=== PATIENT | male | born 1945 | race Caucasian/White ===

== ENCOUNTER → 2017-04-30 | Outpatient (CLI) | payer MEDICARE, OTHER | END | disposition home or self-care (01) | LOC: CT 11:38 | DX: N20.2 Calculus of kidney with calculus of ureter (principal); K57.30 Diverticulosis of large intestine without perforation or abscess without bleeding; N40.0 Benign prostatic hyperplasia without lower urinary tract symptoms | CPT/HCPCS: 74176 ==

== ENCOUNTER → 2017-05-28 | Day surgery (SDC) | payer MEDICARE, OTHER ==
[~2017-05-28] MED LIST: DEXAMETHASONE SOD PHOS 20 MG/5 ML VIAL.; LIDOCAINE 1% PF 2 ML VIAL. ID; LIDOCAINE 2% JELLY 6ML IN APPLICATOR.; LIDOCAINE 2% PF Vial for OR 5 ML VIAL.; MORPHINE SULFATE 4 MG/ML DISP.SYRIN. IV; ONDANSETRON PF 4 MG/2 ML VIAL.; ONDANSETRON PF 4 MG/2 ML VIAL. IV; PROPOFOL 0 ML IV; SEVOFLURANE 31 TO 60 MINUTES. IH; ceFAZolin 2GM PREMIX 2 GM/50 ML BAG IV; fentaNYL PF VIAL 100 MCG/2 ML VIAL; fentaNYL PF VIAL 100 MCG/2 ML VIAL IV
[2017-05-28] MEDS: IV RINGERS,LACTATED 1000ML 1,000 ML IV (11:45)
[2017-05-28] MEDS: PROCHLORPERAZINE 10 MG/2 ML VIAL. IV (15:15)
[2017-05-28] MEDS: IOHEXOL 300 MG/ML 100ML VIAL. (15:27)
[2017-05-28] MEDS: HYDROcodone/APAP 5/325MG 1 TAB TABLET PO (16:31)
== END | disposition home or self-care (01) ==
LOC: SURG 11:09
DX: N20.1 Calculus of ureter (principal); N40.0 Benign prostatic hyperplasia without lower urinary tract symptoms; I25.10 Atherosclerotic heart disease of native coronary artery without angina pectoris; Z86.010 Personal history of colon polyps; I10 Essential (primary) hypertension; Z95.5 Presence of coronary angioplasty implant and graft; I50.9 Heart failure, unspecified; Z85.47 Personal history of malignant neoplasm of testis
CPT/HCPCS: 52332; 74420; C1769; J0690; J0780; J1100; J2405; J2704; J3010; Q9967

== ENCOUNTER → 2019-01-13 | Outpatient (CLI) | payer MEDICARE, OTHER ==
[2017-05-28 16:11] VITALS: BP 115/58
[~2019-01-13] MED LIST changes: +AMLO5TAB4 PO; +ASCO-78 PO; +ASPI-630 PO; +ATOR40TA59 PO; -DEXAMETHASONE SOD PHOS 20 MG/5 ML VIAL.; +FOLI1TAB16 PO; +HYDR-2761 PO; +HYDR-3164 PO; -LIDOCAINE 1% PF 2 ML VIAL. ID; -LIDOCAINE 2% JELLY 6ML IN APPLICATOR.; -LIDOCAINE 2% PF Vial for OR 5 ML VIAL.; +LISI-130 PO; +METO50TA6 PO; -MORPHINE SULFATE 4 MG/ML DISP.SYRIN. IV; +MULT1TAB52 PO; +OMEG-165 PO; +ONDA4TAB7 PO; -ONDANSETRON PF 4 MG/2 ML VIAL.; -ONDANSETRON PF 4 MG/2 ML VIAL. IV; -PROPOFOL 0 ML IV; -SEVOFLURANE 31 TO 60 MINUTES. IH; +SILD20TA2 PO; +TAMS0.4C97 PO; -ceFAZolin 2GM PREMIX 2 GM/50 ML BAG IV; -fentaNYL PF VIAL 100 MCG/2 ML VIAL; -fentaNYL PF VIAL 100 MCG/2 ML VIAL IV
[2019-01-13 12:29] LABS: ALBUMIN 3.5 g/dL (3.4-5.0); CALCIUM 8.6 mg/dL (8.5-10.1); CREATININE 0.9 mg/dL (0.7-1.3); GFR 82.9; TOTAL BILIRUBIN 0.5 mg/dL (0.2-1.0)
[2019-01-13 12:32] LABS: BASO # 0.1 x10^3/uL (0.0-0.2); BASO % 1 % (0-3); EOS # 0.2 x10^3/uL (0.0-0.7); EOS % 3 % (0-3); HEMOGLOBIN 13.8 g/dL (13.0-17.5); LYMPH # 1.2 x10^3/uL (1.0-4.8); LYMPH % 23 % (24-48); MEAN CORPUSCULAR HEMOGLOBIN 31 pg (25-35); MEAN CORPUSCULAR HGB CONC 33 g/dL (31-37); MEAN CORPUSCULAR VOLUME 94 fL (79-100); MONO # 0.4 x10^3/uL (0.0-1.1); MONO % 7 % (0-9); NEUT # 3.4 x10^3/uL (1.8-7.7); NEUT % 65 % (31-73); PLATELET COUNT 177 x10^3/uL (140-400); RED BLOOD COUNT 4.49 x10^6/uL (4.30-5.70); RED CELL DISTRIBUTION WIDTH 14.8 % (11.5-14.5); WHITE BLOOD COUNT 5.2 x10^3/uL (4.0-11.0)
== END | disposition home or self-care (01) ==
LOC: SURGPAT 11:15
PROVIDERS: ATTEND Surgery
DX: Z01.812 Encounter for preprocedural laboratory examination (principal); K82.8 Other specified diseases of gallbladder
CPT/HCPCS: 36415; 80048; 82040; 82247; 85025

== ENCOUNTER 2019-01-19 07:51 | Day surgery (SDC) | payer MEDICARE, OTHER ==
[~2019-01-19] VITALS: Ht 165.1 cm; Wt 88.0 kg
[~2019-01-19 07:51] MED LIST changes: +BUPIVACAINE-EPI 0.5%-1:200000 MPF 30 ML VIAL. INJ ONE; +GLUCAGON,HUMAN RECOMBINANT 1 MG/ML VIAL. ONE; -HYDR-3164 PO; +HYDROmorphone 2 MG/ML VIAL IV PRN; +IOHEXOL 300 MG/ML 50 ML VIAL. ONE; +IV RINGERS,LACTATED 1000ML 1,000 ML IV SCH; +LIDOCAINE 1% PF 2 ML VIAL. ID PRN; +MORPHINE SULFATE 2 MG/ML VIAL. IV PRN; +ONDANSETRON PF 4 MG/2 ML VIAL. IV PRN; +PROCHLORPERAZINE 10 MG/2 ML VIAL. IV PRN; +SURGICEL HEMOSTAT 4X8 EACH. ONE; +fentaNYL PF VIAL 100 MCG/2 ML VIAL IV PRN
[2019-01-19] MEDS ORDERED: NEOSTIGMINE METHYLSULFATE 5 MG/5 ML SYRINGE. ONE (08:16)
[2019-01-19] MEDS ORDERED: MIDAZOLAM HCL/PF 2 MG/2 ML VIAL. ONE (08:16)
[2019-01-19] MEDS ORDERED: GLYCOPYRROLATE 1 MG/5 ML VIAL. ONE (08:16)
[2019-01-19] MEDS ORDERED: ROCURONIUM 50 MG/5 ML VIAL. ONE (08:16)
[2019-01-19] MEDS ORDERED: SEVOFLURANE 61 TO 120 MINUTES. IH ONE (08:16)
[2019-01-19] MEDS ORDERED: fentaNYL PF VIAL 100 MCG/2 ML VIAL ONE ×2 (08:16→10:45)
[2019-01-19] MEDS ORDERED: ONDANSETRON PF 4 MG/2 ML VIAL. ONE (08:17)
[2019-01-19] MEDS ORDERED: PROPOFOL 20 ML IV ONE (08:17)
[2019-01-19] MEDS ORDERED: DEXAMETHASONE SOD PHOS 4 MG/ML VIAL ONE (08:17)
[2019-01-19] MEDS ORDERED: LIDOCAINE 2% PF 5 ML VIAL. ONE (08:17)
[2019-01-19] MEDS ORDERED: ePHEDrine PF IN SALINE 50 MG/10 ML SYRINGE. IV ONE (09:38)
[2019-01-19] MEDS ORDERED: PHENYLEPHRINE in 0.9% NACL PF 1 MG/10 ML SYRINGE. IV ONE (09:52)
--- NOTE | 2019-01-19 10:50 | PDOC ---
BRIEF OPERATIVE NOTE Date: Jan 19, 2019 Pre-Op Diagnosis biliary dyskinesia Post-Op Diagnosis same with acute cholecystitis Procedure Performed l/s mike with grams Surgeon Beto Anesthesia Type: General Blood Loss 10cc IV Fluid 800cc Specimens Obtained GB Findings edematous GB, normal grams Complications none Operative Note Wk # [id number] REJI STEELE MD Jan 19, 2019 10:50
--- NOTE | 2019-01-19 10:51 | DISCH ---
DISCHARGE INSTRUCTIONS Condition on Discharge Condition on Discharge: Stable Activity After Discharge Activity Instructions for Disc: Activity as tolerated, Avoid exertion Lifting Instructions after Dis: No heavy lifting Driving Instructions after Dis: Do not drive (2-3 days) Diet after Discharge Diet after Discharge: Regular Wound Incision Care Wound/Incision Care: Ice to area for comfort Other wound/incision instructi: july shower Saturday Follow-Up Follow up with: Beto 01/22 in office for drain removal REJI STEELE MD Jan 19, 2019 10:51
--- NOTE | 2019-01-19 11:06 | OP ---
DATE OF SURGERY: 01/19/2019 PREOPERATIVE DIAGNOSIS: Biliary dyskinesia. POSTOPERATIVE DIAGNOSIS: Biliary dyskinesia with acute cholecystitis. PROCEDURE: Laparoscopic cholecystectomy with cholangiogram. SURGEON: Reji Steele MD ANESTHESIA: General endotracheal. ESTIMATED BLOOD LOSS: 10. INTRAVENOUS FLUIDS: 800. OPERATIVE FINDINGS: The gallbladder was edematous and distended. Visual inspection of the remainder of the abdomen failed to reveal obvious abnormalities. DESCRIPTION OF PROCEDURE: The patient was brought to the operating suite, given a general endotracheal anesthetic, and the abdomen prepped and draped in usual sterile fashion. A supraumbilical incision was infiltrated with local, incised and a 5 mm Visiport used to safely gain access into the abdominal cavity, taking care to avoid injury to abdominal contents. Pneumoperitoneum established. Camera inserted. Inspection carried out with results as noted above. With the table in reverse Trendelenburg rolled to the left, the epigastric, midclavicular and lateral ports were placed under direct vision. The gallbladder was aspirated of approximately 30 mL of concentrated bile to allow grasping of the fundus, which was then retracted superolaterally. The cystic duct and cystic artery were exposed. The duct was clipped on the gallbladder side. Cholangiograms were made. These were normal. In light of this, the catheter was removed, the cystic duct was clipped and divided, taking care to avoid injury or compromise of the common duct. An anterior and posterior branch of the cystic artery were clipped and divided, and gallbladder freed from the bed with cautery dissection and placed in an EndoCatch bag. Hemostasis obtained in the fossa with cautery and a small piece of Surgicel. A 19-Jordanian round Niko drain was brought through the epigastric port out the lateral port, sewn to the skin with a silk stitch and left in the subhepatic space for postoperative drainage. Table returned to level. Gallbladder delivered through the epigastric incision. Epigastric incision closed with interrupted 0 Vicryl suture. Intra-abdominal pressure decreased to 6 cm of water. No bleeding from the epigastric closure or the midclavicular or lateral drain sites. Abdomen decompressed, camera slowly removed, no bleeding seen. Skin incisions closed with subcuticular 4-0 Monocryl. Steri-Strips and sterile dressings applied. The patient was awakened from his anesthetic and taken to the recovery room in satisfactory condition. REJI STEELE MD DR: Vanessa JOB#: [id number] / [id number]
[2019-01-19] MEDS ORDERED: HYDROcodone/APAP 5/325MG 1 TAB TABLET PO ONE (11:30)
--- NOTE | 2019-01-19 11:34 | RAD ---
C-arm fluoroscopy with fluoroscopic spot views Clinical indications: Intraoperative cholangiogram. Laparoscopic cholecystectomy. Total fluoroscopic time: 12 seconds. Total fluoroscopic spot images: 3 IMPRESSION: Fluoroscopic spot images demonstrate opacification of the extra hepatic biliary tree which is nondilated. There is free flow of contrast material from the common bile duct into the duodenum. No stricture or stone is evident. Electronically signed by: Antonio Blunt MD (01/19/2019 11:30 AM) [id number]
[2019-01-19] MEDS ORDERED: HYDR-3164 PO ×2 (11:48→11:50)
[2019-01-19 12:19] VITALS: BP 114/62
--- NOTE | 2019-01-20 18:06 | PATHOLOGY ---
[facility] Accession Number: [id number] . 01 Material submitted: . gallbladder - GALLBLADDER . 01 Clinical history: . Cholecystitis . 02 Diagnosis: Gallbladder, laparoscopic cholecystectomy: - Bile sludge. 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 02 Comment: There is bile sludge within the gallbladder lumen. There are no discreet calculi. There is no evidence of malignancy. 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 02 Electronically signed: . Clayton Milton MD, Pathologist NPI- [id number] . 01 Gross description: . The specimen is received in formalin, labeled "Vinicius, Omar, gallbladder", is intact gallbladder measuring 5.8 cm in length and 1.9 cm in maximum diameter with a diffusely hemorrhagic serosa. Approximately 1.2 cm from the fundus there is a blue suture tied to the gallbladder. The cystic duct is patent. The gallbladder lumen contains dark brown-yellow sludge and no discrete calculi. The mucosa is dark brown and granular and with no recognizable cholesterolosis. The wall is 0.2 cm in average thickness. Representatively submitted in A1. ([facility]; 01/19/2019) [facility] 01/19/2019 1908 Local . 02 Pathologist provided ICD-10: K81.1 . 02 CPT . 658268 Specimen Comment: A courtesy copy of this report has been sent to [phone], [phone] Specimen Comment: [id number] Specimen Comment: Report sent to and Performed at: [address], [place] [id number] MD Dominik Sutton MD Phone: [phone] Performed at: [address] [id number] MD Clayton Milton MD Phone: [phone]
== END 2019-01-19 13:01 | disposition home or self-care (01) ==
LOC: SURG 07:51
PROVIDERS: ATTEND Surgery
DX: K82.8 Other specified diseases of gallbladder (principal); K80.12 Calculus of gallbladder with acute and chronic cholecystitis without obstruction; I10 Essential (primary) hypertension; I11.9 Hypertensive heart disease without heart failure; I25.2 Old myocardial infarction; I25.10 Atherosclerotic heart disease of native coronary artery without angina pectoris; K57.30 Diverticulosis of large intestine without perforation or abscess without bleeding; Z98.890 Other specified postprocedural states; Z87.442 Personal history of urinary calculi; Z95.5 Presence of coronary angioplasty implant and graft; Z86.010 Personal history of colon polyps; Z85.89 Personal history of malignant neoplasm of other organs and systems
CPT/HCPCS: 47563; 74300; A7015; J0171; J1100; J2001; J2250; J2370; J2405; J2704; J2710; J3010; J3490; J7030; J7120; Q9967; 88304; J1610